=== PATIENT | male | born 2000 ===

== ENCOUNTER 2021-03-21 10:21 | Outpatient (CLI) | payer BC | END 2021-03-21 10:22 | disposition home or self-care (01) | LOC: BICMAMMO 10:21 | PROVIDERS: ATTEND Student in an Organized Health Care Education/Training Program | DX: N62 Hypertrophy of breast (principal) | CPT/HCPCS: 77066; G0279 ==

== ENCOUNTER 2021-09-11 12:25 | Outpatient (CLI) | payer OTHER ==
[2021-09-11 14:16] LABS: #Basophils 0.1 10x3/uL (0.0-0.2); #Eosinphils 0.3 10x3/uL (0.0-0.5); #Monocytes 0.6 10x3/uL (0.0-1.1); #Neutrophils 3.1 10x3/uL (1.5-8.4); %Basophils 1.7 % (0.0-2.0); %Eosinophils 4.1 % (0.0-6.0); %Lymphocytes 36.5 % (18.0-47.0); %Neutrophils 48.2 % (40.0-75.0); Hemoglobin 15.3 g/dL (13.5-17.5); Mean Corpuscular HGB CONC 33.6 g/dL (32.0-36.0); Mean Corpuscular Hemoglobin 29.6 pg (27.0-33.0); Mean Corpuscular Volume 88.2 fl (81.2-95.1); Mean Platelet Volume 11.2 fl (7.4-10.4); Platelet Count 196 10x3/uL (150-450); RBC Distribution Width 12.6 % (11.5-14.5); Red Blood Cell (RBC) Count 5.17 10x6/uL (4.32-5.72); White Blood Cell (WBC) Count 6.4 10x3/uL (3.5-10.5)
[2021-09-11 14:37] LABS: Anion Gap 14 mmol/L (10-20); BUN (Urea Nitrogen) 13 mg/dL (8.9-20.6); Calc. Creatinine Clearance 0 mL/min (70-130); Calcium 9.6 mg/dL (7.8-10.44); Carbon Dioxide 27 mmol/L (22-29); Chloride 103 mmol/L (98-107); Glucose 89 mg/dL (70-105); Potassium 4.5 mmol/L (3.5-5.1); Sodium 139 mmol/L (136-145)
[2021-09-12 08:27] LABS: SARS-CoV-2 PCR by NAA Not Detected (NotDetected)
== END 2021-09-11 12:26 | disposition home or self-care (01) ==
LOC: LABBT 12:25
PROVIDERS: ATTEND Specialist
DX: Z01.812 Encounter for preprocedural laboratory examination (principal); N62 Hypertrophy of breast; Z20.822 Contact with and (suspected) exposure to COVID-19
CPT/HCPCS: 80048; 85025; U0003; U0005